=== PATIENT | male | born 1990 | race Caucasian/White ===

== ENCOUNTER → 2016-08-24 | Outpatient (CLI) | payer OTHER ==
--- NOTE | 2016-08-27 10:39 | RADRPT ---
PROCEDURE: CT RIGHT SHOULDER. CLINICAL INDICATION: Right shoulder dislocation. Glenoid bone loss. TECHNIQUE: CT scan of the right shoulder was performed on a multi -slice scanner. No IV contrast was administered. Coronal and sagittal and 3-D reformatted images were obtained from the axial sour ce images. The total exam DLP equals 393.42 mGy-cm. The CDTI volume was 19.92 mGy. One or more of the following dose reduction techniques were used: - Automated exposure control. - Adjustment of the mA and/or kV according to patient size . - Use of iterative reconstruction technique. Images were reviewed on a high-resolution PACS workstation. COMPARISON: None. 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 There are small bony fragments encased within scar at the glenoid deficiency defect. Glenoid track is 0.83 x 19 equals 15.77. Hill-Sachs index is 21 mm transverse dimension of the Hill-Sachs deformity plus 6.9 mm to the cuff a ttachment. Hill-Sachs index is 28. There is approximately 25% bone loss of the glenoid. The supraspinatus tendon density is intact. No evidence for muscle belly atrophy. IMPRESSION: 1. There is approximately 25% bone loss of the glenoid. 2. The Hill-Sachs index is greater than the glenoid track and findings are consistent with an off t rack engaging lesion. 3. Suture anchor tracks from prior Bankart repair are identified. RPTAT: XX .Hector Yo MD, MD Date Time Electronically viewed and signed by .Hector Yo MD, on 08/27/2016 10:38 .T/
== END | disposition home or self-care (01) ==
LOC: C/S 09:11
PROVIDERS: ATTEND Internal Medicine
DX: S43.004D Unspecified dislocation of right shoulder joint, subsequent encounter (principal)
CPT/HCPCS: 73200